=== PATIENT | male | born 1995 ===

== ENCOUNTER 2019-02-11 02:34 | Emergency (ER) | payer OTHER ==
[2019-02-11] MEDS ORDERED: Tdap Vaccine 0.5 ml Vial (10-64 yrs) IM ONE ×3 (02:55→03:16)
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
[2019-02-11] MEDS ORDERED: Piperacillin/Tazobact 3.375 GM in Sodium Chloride 0.9% 100 ML IVPB STA (05:37)
[2019-02-11] MEDS ORDERED: Piperacillin/Tazobact 3.375 gm Inj IVPB ONE (05:58)
[2019-02-11 06:33] LABS: BASO # 0.1 K/uL (0.0-0.2); BASO % 0.6 % (0.0-2.0); EOS # 0.1 K/uL (0.0-0.7); EOS % 0.9 % (0.0-4.0); LYMPH # 1.6 K/uL (1.0-4.3); LYMPH % 12.9 % (20.0-40.0); MEAN CELL VOLUME 91.3 fl (80.0-94.0); MEAN CORPUSCULAR HEMOGLOBIN 30.3 pg (27.0-31.0); MEAN CORPUSCULAR HGB CONC 33.2 g/dL (33.0-37.0); MEAN PLATELET VOLUME 8.2 fl (7.2-11.7); MONO # 0.4 K/uL (0.0-0.8); MONO % 3.5 % (0.0-10.0); NEUT % 82.1 % (50.0-75.0); RBC 4.63 Mil/uL (4.40-5.90); RED CELL DISTRIBUTION WIDTH 13.5 % (11.5-14.5); WHITE BLOOD COUNT 12.2 K/uL (4.8-10.8)
[2019-02-11 06:39] LABS: INR 1.1; PROTHROMBIN TIME 12.6 Seconds (9.8-13.1)
[2019-02-11 06:42] LABS: ALB/GLOB RATIO 1.7 (1.0-2.1); ALBUMIN 4.6 g/dL (3.5-5.0); ALT/SGPT 32 U/L (21-72); AST/SGOT 28 U/L (17-59); BLOOD UREA NITROGEN 11 mg/dl (9-20); CALCIUM 8.5 mg/dL (8.4-10.2); GFR NON-AFRICAN AMERICAN > 60; PARTIAL THROMBOPLASTIN TIME 33.9 Seconds (25.6-37.1)
--- NOTE | 2019-02-11 07:27 | ED PDOC ---
- Laboratory Results Result Diagrams: 02/11/19 06:05 02/11/19 06:05 Lab Results: PT 12.6 Seconds (9.8-13.1) 02/11/19 06:05 INR 1.1 02/11/19 06:05 APTT 33.9 Seconds (25.6-37.1) 02/11/19 06:05 Total Bilirubin 0.9 mg/dl (0.2-1.3) 02/11/19 06:05 AST 28 U/L (17-59) 02/11/19 06:05 ALT 32 U/L (21-72) 02/11/19 06:05 Alkaline Phosphatase 74 U/L (38-126) 02/11/19 06:05 Total Protein 7.4 G/DL (6.3-8.2) 02/11/19 06:05 Albumin 4.6 g/dL (3.5-5.0) 02/11/19 06:05 Globulin 2.8 gm/dL (2.2-3.9) 02/11/19 06:05 Albumin/Globulin Ratio 1.7 (1.0-2.1) 02/11/19 06:05 - ECG O2 Sat by Pulse Oximetry: 99 (RA) Pulse Ox Interpretation: Normal - Progress ED Course And Treament: 1025: Dr. Paez at bedside and evaluated pt. for fx. He fixed pt. nasal fx. Wants pt. to fu with him Tues. Will re-evaluate the orbital fx. Wants dc with percocet, augmentin 875 bid, and zofran. Pt. aaox3. Tolerated po. Fu with p cp. Family at bedside to take pt. home. Ambulated with no issues. Medical Decision Making Medical Decision Makin Patient endorsed by Dr. Bradford, pending consultation by Dr. Paez. Scribe Attestation: Documented by Mona Zimmerman acting as a scribe for Wade Hammer MD. Provider Scribe Attestation: All medical record entries made by the Scribe were at my direction and personally dictated by me. I have reviewed the chart and agree that the record accurately reflects my personal performance of the history, physical exam, medical decision making, and the department course for this patient. I have also personally directed, reviewed, and agree with the discharge instructions and disposition. Disposition - Clinical Impression Clinical Impression: Orbital wall fracture, Nasal fracture, Alcohol intoxication - POA Present On Arrival: Falls Or Trauma - Disposition Referrals: Agata Paez MD [Medical Doctor] - 02/13/19 Disposition: Routine/Home Disposition Time: 10:29 Condition: FAIR Additional Instructions: See Dr. Paez without fail on February 14, 2019. Return if not better in 3 days. Prescriptions: Amoxicillin/Clavulanate [Augmentin 875 MG-125 MG] 1 tab PO BID 7 Days tab Ondansetron ODT [Zofran ODT] 4 mg PO TID PRN #8 odt PRN Reason: Nausea/Vomiting oxyCODONE/Acetaminophen [Percocet 5/325 mg Tab] 1 ea PO BID PRN #5 tab PRN Reason: Muscle Pain Instructions: Nose Fracture, Effects of Alcohol on Your Health, Skull and Faci al Fractures Forms: [facility] ED School/Work Excuse
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
--- NOTE | 2019-02-11 10:08 | CT ---
Date of service: 02/11/2019 PROCEDURE: CT MAXILLOFACIAL BONES WITHOUT CONTRAST HISTORY: RIGHT EYE SWELLING/RIGHT FACIAL SWELLING R/O FX COMPARISON: None available. TECHNIQUE: Contiguous axial CT images of the maxillofacial bones were obtained. Coronal and sagittal reformats were generated. Radiation dose: Total exam DLP = 845.69 mGy-cm. This CT exam was performed using one or more of the following dose reduction techniques: Automated exposure control, adjustment of the mA and/or kV according to patient size, and/or use of iterative reconstruction technique. FINDINGS: NASAL BONES: Comminuted fracture right nasal bones sparing the maxillary component. Limited depression of major fracture fragment identified posteriorly. Prominent overlying right greater than left paranasal soft tissue edema identified. ORBITS: Right lamina papyracea fracture identified with gas in the postseptal extraconal fat anteriorly. Gas seen at the right extraconal postseptal fat inferiorly may indicate a nondisplaced orbital floor fracture. No displaced right orbital floor fracture is appreciated however. Gas seen in the right infra orbital soft tissue reflecting laceration. Clinically correlate. No retained radiodense foreign body identified. Right exophthalmos noted. There is prominence right periorbital soft tissue edema with gas trapped deep to the right eyelid most likely. Eyelid emphysema is not excluded and further correlation is recommended clinically. Prominent right periorbital soft tissue edema extends into the medial left periorbital space. Preseptal periorbital hematoma intermixed with aforementioned edema. PARANASAL SINUSES/ MASTOIDS: Likely posttraumatic sinusitis affects multiple bilateral ethmoid air cells right greater than left maxillary sinus with some hemorrhage clearly identified at the right maxillary sinus.. MAXILLA: No fracture of the maxilla is appreciate however there is soft tissue edema overlying the upper right cheek in conjunction with right infraorbital soft tissue edema. MANDIBLE/ TEMPOROMANDIBULAR JOINTS: Unremarkable. SKULL BASE: Unremarkable. TEMPORAL BONES: Middle ears and mastoid grossly unremarkable. OTHER FINDINGS: None. IMPRESSION: 1. Comminuted mildly depressed right nasal bone fracture with prominent associated soft tissue edema at the right greater than left nasal soft tissues superficially. 2. Right lamina papyracea fracture with likely nondisplaced inferior right orbital floor fracture with limited emphysema identified at the postseptal extraconal space inferiorly as well as anterosuperiorly. Prominent soft tissue edema is either trapped deep to the right eyelid or within the right eyelid. Extensive right periorbital soft tissue edema extends toward the medial left periorbital soft tissue into the superior right cheek soft tissues as well. 3. Right Exopthalmos noted. 4. Hemorrhagic sinusitis right maxillary sinus. Posttraumatic sinusitis noted bilateral ethmoid air cells diffusely as well as mildly at the left maxillary sinus. Concordant preliminary report from [facility], 02/11/2019, 5:13 a.m..
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
[2019-02-11 10:29] VITALS: BP 128/59; PULSE 68; RESP 18; TEMP 97.9
[2019-02-11 10:32] VITALS: O2SAT 99
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
== END 2019-02-11 10:52 | disposition home or self-care (01) ==
LOC: H.ER 02:34
DX: F10.129 Alcohol abuse with intoxication, unspecified (principal); S02.2XXA Fracture of nasal bones, initial encounter for closed fracture; S02.32XA Fracture of orbital floor, left side, initial encounter for closed fracture; Y04.0XXA Assault by unarmed brawl or fight, initial encounter; Y92.89 Other specified places as the place of occurrence of the external cause; F11.20 Opioid dependence, uncomplicated; J32.2 Chronic ethmoidal sinusitis
CPT/HCPCS: 70450; 70480; 72125; 80053; 80320; 85025; 85610; 85730; 86850; 86900; 90471; 90715; 96374; 99284; J2543